=== PATIENT | male | born 2000 | race African-American/Black ===

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

== ENCOUNTER 2022-06-23 12:49 | Emergency (ER) | payer OTHER | END 2022-06-23 13:15 | disposition home or self-care (01) | LOC: ERS 12:49 | DX: Z20.822 Contact with and (suspected) exposure to COVID-19 (principal) | CPT/HCPCS: 99283; U0003; U0005 ==